=== PATIENT | female | born 1965 | race Caucasian/White ===

== ENCOUNTER 2018-07-11 01:10 | Outpatient (CLI) | payer OTHER, SELFPAY ==
--- NOTE | 2018-07-11 13:28 | DI.US_ITS ---
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 Please see the accompanying data sheet for measurements of the pelvic structures. There is an IUD in place in the endometrial cavity. There appear to be multiple uterine fibroids, which are poorly defined with a generally heterogeneous myometrium. The largest fibroid is about 26 mm in diameter. There is a 39 mm in greatest diameter right ovarian cyst, which appears to be a simple cyst. Left ovary contains a 16 mm in diameter simple cyst. No free fluid identified in the cul-de-sac. The kidneys are unremarkable on limited scanning. CONCLUSION: Multiple fibroids, bilateral ovarian cysts as described above. IUD in place in the endometrial cavity.
== END 2018-07-11 01:30 ==
PROVIDERS: PCP Physician Assistant Medical; Visit Provider Obstetrics & Gynecology
DX: D25.1 Intramural leiomyoma of uterus (principal); N83.291 Other ovarian cyst, right side; N83.292 Other ovarian cyst, left side; Z97.5 Presence of (intrauterine) contraceptive device
CPT/HCPCS: 76830; 76856

== ENCOUNTER 2018-07-11 18:04 | Outpatient (REF) | payer OTHER, SELFPAY ==
--- NOTE | 2018-07-11 15:00 | PAPFT_PTH ---
PATIENT: Rodriguez Kennedy LOC: [facility] U#:[id number] AGE/SX: 52/F ROOM: RE07/11/[address]: Lin Nesbitt MD : 1965 BED: DIS: 07/11/2018 SPEC #: [id number] RECD: 07/11/18 18:22 STATUS: JEFF REQ #: [id number] GASTON: 07/11/18 15:[address]: Lin Nesbitt DEPT: [facility] Cytology RECD BY: Sheron Eason ENTERED: 07/11/18 18:23 SP TYPE: PAPFT OTHR DR: Latia Cleaning Tissues: 1 - CX/ENDOCX FOR PAP SMEARS Procedures: PAP THIN PREP/UVM Screening HPV DNA PROBE Comments: [id number]
== END 2018-07-11 18:24 ==
LOC: LBN 18:04
PROVIDERS: PCP Physician Assistant Medical; Visit Provider Obstetrics & Gynecology
DX: Z12.4 Encounter for screening for malignant neoplasm of cervix (principal); Z11.51 Encounter for screening for human papillomavirus (HPV)
CPT/HCPCS: 88142; 87624

== ENCOUNTER 2019-08-22 03:27 | Outpatient (CLI) | payer OTHER, SELFPAY ==
--- NOTE | 2019-08-22 14:13 | DI.US_ITS ---
EXAM: US PELVIS AND TRANSVAGINAL CLINICAL HISTORY: HX OF FIBROIDS, INTRAMURAL LEIOMYOMA OF UTERUS, D25.1 TECHNIQUE: Ultrasound performed using standard protocol. Pelvic ultrasound was performed transabdo minally and transvaginally. COMPARISON: US PELVIS TRANSVAGINAL from 07/11/2018 FINDINGS: Please see the accompanying data sheet for measurements of pelvic structures. There are numerous [place] fibroids, the largest measuring about 28 millimeters in diameter. Endometrial stripe is about 2 .5 millimeters in thickness with an IUD in place, fundus. The ovaries have an unremarkable appearanc e within involuting cyst in the right ovary and unremarkable follicular appearance of the left ovary. No free fluid identified in the cul-de-sac. Limited scanning of the kidneys is unremarkable. IMPRESSION: Multiple small uterine fibroids as noted above. The largest measures about 28 millimeters in diamete r and lies in the uterine body to the right of midline.
== END 2019-08-22 03:47 ==
PROVIDERS: PCP Physician Assistant Medical; Visit Provider Obstetrics & Gynecology Gynecology
DX: D25.1 Intramural leiomyoma of uterus (principal)
CPT/HCPCS: 76830; 76856

== ENCOUNTER 2020-10-26 01:23 | Outpatient (CLI) | payer OTHER, SELFPAY ==
--- NOTE | 2020-10-26 08:00 | DI.US_ITS ---
EXAM: US PELVIS TRANSVAGINAL CLINICAL HISTORY: f/u of uterine fibroids, IUD in place,PREMENOPAUSAL MENORRHAGIA,N92.4,D25.1 TECHNIQUE: Ultrasound performed using standard protocol. COMPARISON: No exams were available for comparison FINDINGS: Pelvic ultrasound was performed transabdominally transvaginally. Uterus measures 8.5 x 5.0 x 7.2 cm. Endometrial stripe is about 2 millimeters in thickness. There i s an IUD in place in the endometrial cavity. There are multiple apparent uterine fibroids, the largest in the fundus measuring about 28 x 24 x 23 millimeters in diameter. The ovaries have a normal follicular appearance. Right ovary measures 28 x 11 x 11 millimeters and l eft ovary measures 22 x 20 x 17 millimeters. Limited scanning of the kidneys is unremarkable. No free fluid identified in the pelvis. IMPRESSION: Multiple uterine fibroids. IUD in appropriate position in the endometrial cavity. DATA REPOSITORY:
== END 2020-10-26 01:43 ==
PROVIDERS: PCP Physician Assistant Medical; Visit Provider Obstetrics & Gynecology Gynecology
DX: D25.1 Intramural leiomyoma of uterus (principal); Z97.5 Presence of (intrauterine) contraceptive device; N92.4 Excessive bleeding in the premenopausal period
CPT/HCPCS: 76830; 76856

== ENCOUNTER 2020-11-01 15:00 | Outpatient (REF) | payer OTHER, SELFPAY ==
--- NOTE | 2020-11-01 13:55 | PAPFT_PTH ---
PATIENT: Rodriguez Kennedy LOC: [facility] U#:[id number] AGE/SX: 54/F ROOM: RE11/01/[address]: Mayte Lund : 1965 BED: DIS: 11/01/2020 SPEC #: [id number] RECD: 11/01/20 17:29 STATUS: JEFF REAvery #: [id number] GASTON: 11/01/20 13:[address]: Mayte Lund DEPT: [facility] Cytology RECD BY: Sheron Eason ENTERED: 11/01/20 17:30 SP TYPE: PAPFT OTHR DR: Latia Cleaning Tissues: 1 - CX/ENDOCX FOR PAP SMEARS Procedures: PAP THIN PREP/UVM Screening HPV DNA PROBE Comments: [id number]
== END 2020-11-01 15:01 | disposition home or self-care (01) ==
LOC: LBN 15:00
PROVIDERS: PCP Physician Assistant Medical; Visit Provider Obstetrics & Gynecology Gynecology
DX: Z12.4 Encounter for screening for malignant neoplasm of cervix (principal); Z11.51 Encounter for screening for human papillomavirus (HPV)
CPT/HCPCS: 88142; 87624

== ENCOUNTER 2022-11-30 10:16 | Outpatient (REF) | payer BC, SELFPAY ==
--- NOTE | 2022-11-30 09:50 | ENDOMET_PTH ---
PATIENT: Rodriguez Kennedy LOC: [facility] U#:[id number] AGE/SX: 57/F ROOM: RE11/30/[address]: Mayte Lund : 1965 BED: DIS: 11/30/2022 SPEC #: [id number] RECD: 11/30/22 12:38 STATUS: JEFF REQ #: [id number] GASTON: 11/30/22 09:[address]: Mayte Lund DEPT: Surgical Specimen RECD BY: Sheron Eason ENTERED: 11/30/22 12:39 SP TYPE: Endomet OTHR DR: Latia Cleaning Tissues: 1 - ENDOMETRIUM BX/COOKIEETTE Procedures: GROSS AND MICRO LEVEL 4 Comments: [id number]
== END 2022-11-30 10:17 | disposition home or self-care (01) ==
LOC: LBN 10:16
PROVIDERS: PCP Physician Assistant Medical; Visit Provider Obstetrics & Gynecology Gynecology
DX: D25.1 Intramural leiomyoma of uterus (principal)
CPT/HCPCS: 88305

== ENCOUNTER 2023-10-10 17:45 | Outpatient (REF) | payer BC, SELFPAY ==
--- NOTE | 2023-10-10 16:30 | PAPFT_PTH ---
PATIENT: Rodriguez Kennedy LOC: [facility] U#:[id number] AGE/SX: 57/F ROOM: RE10/10/[address]: Mayte Lund : 1965 BED: DIS: 10/10/2023 SPEC #: [id number] RECD: 10/10/23 18:06 STATUS: JEFF REAvery #: [id number] GASTON: 10/10/23 16:[address]: Mayte Lund DEPT: [facility] Cytology RECD BY: Sheron Eason ENTERED: 10/10/23 18:07 SP TYPE: PAPFT OTHR DR: Latia Cleaning Tissues: 1 - CX/ENDOCX FOR PAP SMEARS Procedures: PAP THIN PREP/UVM Screening HPV DNA PROBE Comments: [id number]
== END 2023-10-10 17:46 | disposition home or self-care (01) ==
LOC: LBN 17:45
PROVIDERS: PCP Physician Assistant Medical; Visit Provider Obstetrics & Gynecology Gynecology
DX: Z12.4 Encounter for screening for malignant neoplasm of cervix (principal); Z01.419 Encounter for gynecological examination (general) (routine) without abnormal findings
CPT/HCPCS: 88142; 87624

== ENCOUNTER 2024-11-07 16:25 | Outpatient (CLI) | payer BC, SELFPAY ==
[2024-11-07 16:01] LABS: ALT 32 U/L (14-59); AST 29 U/L (15-37); Albumin 3.9 g/dL (3.4-5.0); Alkaline Phosphatase 84 U/L (46-116); Anion Gap 8.6 mmol/L (3-11); BUN 16 mg/dL (7-18); Bilirubin, Total 0.7 mg/dL (0.2-1.0); CO2 30.4 mmol/L (21.0-32.0); CREATININE 0.9 mg/dL (0.55-1.02); Calcium 9.4 mg/dL (8.5-10.1); Chloride 106 mmol/L (98-107); Estimated GFR 73.64 (mL/min/1.73m2); Glucose 149 mg/dL (74-106); Potassium 3.9 mmol/L (3.5-5.1); Sodium 145 mmol/L (136-145); Total Protein 7.8 g/dL (6.4-8.2)
== END 2024-11-07 16:26 | disposition home or self-care (01) ==
LOC: LBO 16:26
PROVIDERS: PCP Physician Assistant Medical; Visit Provider Obstetrics & Gynecology
DX: Z13.9 Encounter for screening, unspecified (principal); R30.0 Dysuria; Z01.419 Encounter for gynecological examination (general) (routine) without abnormal findings; N95.1 Menopausal and female climacteric states; N84.1 Polyp of cervix uteri; Z80.3 Family history of malignant neoplasm of breast
CPT/HCPCS: 36415; 80053